=== PATIENT | male | born 1985 | race Caucasian/White ===

== ENCOUNTER → 2020-09-29 | Outpatient (CLI) | payer OTHER ==
--- NOTE | 2020-09-29 10:20 | P.SLEEP ---
History of Present Illness H&P Date: 09/29/20 35-year-old male patient is coming in to be notes from obstructive sleep apnea. He comes in with a strong family history. His father had JOSÉ MANUEL, he has a brother with JOSÉ MANUEL and an uncle with JOSÉ MANUEL. He is obese. His BMI 34.2. He carries an [place] score of 20. His neck size and anterior and a half inches. He has loud snoring, sleep fragmentation, and excessive daytime tiredness and sleepiness during the day. He also wakes up gasping for air. He does have nocturnal heartburn. 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 The patient gets tired during these drives, nevertheless, he does not fall asleep and he's never been involved in a motor vehicle accident because of feeling drowsy or sleepy. He works between 1:45 PM and 10:15 PM. He gets home late and he ultimately goes to bed at 1:30 AM and he has to wake up at 6 AM in the morning to take his daughter to daycare. Following that, the patient takes another nap between 8 AM and noon time. Despite all these sleeping hours, he feels drowsy and sleepy during the day. He has history of depression. Is currently on Lexapro. He also has history of gout. His blood pressure slightly elevated. He wakes up unrefreshed and tired and fatigued during the day. He has no restlessness in the extremities. Does have some grinding.he is obese and he has lost around 10 pounds over this past 1 year. No other medical problems and comorbidities. His has reported that he has a very loud snore and he quits breathing at night and as such there is a positive history of witnessed apneas. He prefers to sleep on his side. Review of Systems Constitutional: Reports daytime sleepiness, Reports fatigue, Reports weight loss (10 pounds) Eyes: denies as per HPI, denies blurred vision, denies bulging eye, denies decreased vision, denies diplopia, denies discharge, denies dry eye, denies irritation, denies itching, denies pain, denies photophobia, denies loss of peripheral vision, denies loss of vision, denies tunnel vision/blind spots Ears: deny: decreased hearing, ear discharge, earache, tinnitus Ears, nose, mouth and throat: Denies headache, Denies sore throat Breasts: absent: as per HPI, gynecomastia Cardiovascular: Denies chest pain, Denies shortness of breath Respiratory: Reports as per HPI Gastrointestinal: Reports as per HPI, Reports heartburn Genitourinary: Reports as per HPI Musculoskeletal: Reports as per HPI Musculoskeletal: absent: ankle pain, ankle stiffness, ankle swelling Integumentary: Reports as per HPI Neurological: Reports as per HPI Psychiatric: Reports as per HPI Endocrine: Reports as per HPI Hematologic/Lymphatic: Reports as per HPI Allergic/Immunologic: Reports as per HPI Past Medical History Additional Past Medical History / Comment(s): Gout and Depression Past Psychological History: Depression Smoking Status: Former smoker (the patient quit smoking several years ago) Past Alcohol Use History: None Reported Past Drug Use History: None Reported - Past Family History Brother(s) Family Medical History: Sleep Apnea/CPAP/BIPAP Medications and Allergies Home Medications and Allergies Comment(s): home medications include Lexapro 10 mg by mouth daily and allopurinol 100 mg by mouth daily Physical Exam The patient appeared well nourished and normally developed. Vital signs as documented. Head exam is unremarkable. No scleral icterus or corneal arcus noted. Neck is without jugular venous distension, thyromegaly, or carotid bruits.the patient has significant crowding of the posterior oropharynx with a Mallampati class IV Carotid upstrokes are brisk bilaterally. Lungs are clear to auscultation and percussion. Cardiac exam reveals the PMI to be normally sized and situated. Rhythm is regular. First and second heart sounds normal. No murmurs, rubs or gallops. Abdominal exam reveals normal bowel sounds, no masses, no organomegaly and no aortic enlargement. Extremities are nonedematous and both femoral and pedal pulses are normal.Examination of the skin revealed no evidence of significant rashes, suspicious appearing nevi or other concerning lesions.Neurologically, the patient is awake and alert and the patient does not have any focal neurological deficit. Cranial nerves are essentially intact. Assessment and Plan Plan: 1 chronic hypersomnia with high likelihood of obstructive sleep apnea. The patient carries no poor score of 20. He has loud snoring, witnessed apneas, sleep fragmentation and possibly component of insufficient sleep syndrome. Please refer to the above consultation regarding his sleep schedule. He has a Mallampati class IV and his next 2-1/2 inches and the patient's body mass index is currently at 34.2. Overall likely for obstructive sleep apnea is very high 2 obesity with a BMI of 34 3 history of depression currently on Lexapro 4 gout 5 nocturnal heartburn Plan I do have a high clinical suspicion that the patient has underlying obstructive sleep apnea. He will be set for a polysomnogram to evaluate for sleep apneaand further recommendation be done regarding on treatment. Meanwhile, the patient will be asked to lose weight, sleep on his side, optimizing sleep hygiene measures, take naps during the day special when he feels drowsy or sleepy and avoid driving especially when he is feeling fatigued and drowsy. He is interested in CPAP therapy. He is aware about treatment knowing that he comes in with a strong family history and is very much aware of obstructive sleep apnea. We'll continue to follow. Sleep Note - Sleep Data Previous Sleep Study: No - Sleep Note Sleep Note: Temperature: 97 7 Pulse Rate: 80 Respiratory Rate: 12 Blood Pressure: 146/51 SpO2: 97% Height: 6 feet 2 inches Weight: 270 pounds BMI: 34.2 Neck Circumference: 19-1/2 inches
== END | disposition home or self-care (01) ==
LOC: SLEEP 09:42
PROVIDERS: ATTEND Internal Medicine Critical Care Medicine
DX: G47.10 Hypersomnia, unspecified (principal); R12 Heartburn; E66.9 Obesity, unspecified; M10.9 Gout, unspecified; Z68.34 Body mass index [BMI] 34.0-34.9, adult; Z86.59 Personal history of other mental and behavioral disorders; Z79.899 Other long term (current) drug therapy
CPT/HCPCS: 99211

== ENCOUNTER 2022-05-20 09:34 | Day surgery (SDC) | payer OTHER ==
[2022-05-20] MEDS: LACTATED RINGERS 1,000 ML IV SCH ×2 (10:35→10:50)
[2022-05-20 10:58] VITALS: TEMP 97
[2022-05-20] MEDS ORDERED: LIDOCAINE 2% INJ 20 MG/ML (2 ML VIAL) ONE (11:50)
[2022-05-20] MEDS ORDERED: PROPOFOL 10 MG/ML 20 ML VIAL IV ONE (11:50)
[2022-05-20 12:10] VITALS: RESP 18
--- NOTE | 2022-05-20 12:12 | P.PCN ---
Date of Procedure: 05/20/22 Procedure(s) Performed: BRIEF HISTORY: Patient is a 37-year-old pleasant white male scheduled for an elective colonoscopy as a part of evaluation of recent episode of acute diverticulitis for which she was treated with antibiotics in February of this year. Currently symptomatic. PROCEDURE PERFORMED: Colonoscopy. PREOPERATIVE DIAGNOSIS: Recent Episode of acute sigmoid diverticulitis. IV sedation per Anesthesia. PROCEDURE: After informed consent was obtained, the patient, was brought into the endoscopy unit. IV sedation was administered by Anesthesia under continuous monitoring. Digital rectal examination was normal. Initially the Olympus CF-160 flexible video colonoscope was then inserted in the rectum, gradually advanced into the cecum without any difficulty. Careful examination was performed as the scope was gradually being withdrawn. Ileocecal valve and the appendiceal orifice were visualized and appeared normal. Prep was excellent. Mucosa of the cecum, ascending colon, transverse colon, descending colon, sigmoid colon, and rectum appeared normal. Scattered diverticulosis. Retroflexion was performed in the rectum and no lesions were seen. The patient tolerated the procedure well. IMPRESSION: Normal-appearing colon from rectum to cecum with no evidence of colorectal neoplasia . Scattered diverticulosis. RECOMMENDATIONS: Findings of this examination were discussed with the patient as well as his family. He was advised to be a high-fiber diet and fiber supplements a regular basis. Recommend repeat screening colonoscopy at age 47..
[2022-05-20 12:21] VITALS: BP 103/61; PULSE 50
== END 2022-05-20 12:40 ==
LOC: ORWHC2ENDO 09:34
PROVIDERS: ATTEND Internal Medicine Gastroenterology
DX: K57.30 Diverticulosis of large intestine without perforation or abscess without bleeding (principal); G47.33 Obstructive sleep apnea (adult) (pediatric); E66.01 Morbid (severe) obesity due to excess calories
CPT/HCPCS: 45378; J2704; J2001